=== PATIENT | female | born 1955 | race Caucasian/White ===

== ENCOUNTER 2021-12-22 14:58 | Emergency (ER) | payer MEDICARE, OTHER, SELFPAY ==
[2021-12-22 15:06] VITALS: BP 165/102; PULSE 106; RESP 16; TEMP 36.7; O2SAT 98
--- NOTE | 2021-12-22 15:12 | ED.FEVER ---
HPI - Fever General Chief Complaint: Fever Stated Complaint: has fever; needs covid test and urine culture Time Seen by Provider: 12/22/21 15:28 Mode of arrival: ambulatory Limitations: no limitations History of Present Illness HPI Narrative: 66-year-old female presents with concern for an elevated temperature reading today when she went to the unmanned equipment operator. Reports that he took a tympanic temperature and told her she had a fever of 101.7. Reports she went home and took 1 Tylenol. She presented here approximately 1 hour after her elevated temperature reading at the unmanned equipment operator. She denies any symptoms. Denies fever, body aches, chills, sweats, cough, runny nose, nasal congestion. Denies abdominal pain, nausea, vomiting, dysuria, hematuria, frequency, urgency, headache, general malaise MD elicited complaint: fever Related Data Home Medications Medication Instructions Recorded Confirmed albuterol sulfate INHALATION 12/22/21 alprazolam 12/22/21 lisinopril 12/22/21 paroxetine HCl mg PO 12/22/21 simvastatin mg 12/22/21 Allergies Allergy/AdvReac Type Severity Reaction Status Date / Time codeine AdvReac n/v Verified 08/05/12 11:53 Review of Systems Review of Systems: CONSTITUTIONAL: Denies malaise, chills, sweats, or fever. EYES: Denies visual changes, redness, or discharge. ENT: Denies rhinorrhea, congestion, sinus pain, otalgia or sore throat. CARDIOVASCULAR: Denies chest pain, palpitations, or edema. RESPIRATORY: Denies cough or dyspnea. GASTROINTESTINAL: Denies abdominal pain, nausea, vomiting, diarrhea, bloody, or mucous stools. GENITOURINARY: Denies dysuria or hematuria. SKIN: Denies rash or itching. MUSCULOSKELETAL: Denies back pain, joint pain, or myalgia. NEUROLOGIC: Denies numbness, weakness, or headache. PSYCHIATRIC: Denies anxiety or depression. All systems reviewed & are unremarkable except as noted in HPI and below PMFSH Comments At time of signature, agree with nursing past medical, surgical, social and family history. There is no relevant family history pertinent to the presenting complaint Exam Narrative: GENERAL: Well-appearing, well-nourished, and in no acute distress. HEAD: Normocephalic, atraumatic. EYES: PERRLA, sclera clear ENT: Nares clear, turbinates pink, no rhinorrhea or epistaxis. Mucous membranes moist. TM pearly garcia with sharp light reflex bilaterally; no tragal tenderness. Oropharynx without erythema or lesions. Tonsils not enlarged and without exudate. NECK: Supple. No lymphadenopathy. CHEST: No respiratory distress. Clear to auscultation. No bony deformities, no asymmetry. Speaks in full sentences. HEART: Regular rate and rhythm. No murmur heard. Normal peripheral pulses. EXTREMITIES: Grossly normal range of motion. No edema. Grossly normal strength and sensation. SKIN: Warm, dry, no visible rash. NEURO: Alert and oriented x3. PSYCH: Normal mood and affect Course Course Emergency Course: Patient is aware of diagnosis, understands and agrees to treatment plan. Anticipatory guidance given. Patient agrees to follow-up as directed and is aware of reasons to seek care at the emergency department. Portions of this record may have been created with voice recognition software Level of Care: Express Care Visit Vital Signs Vital signs: Reviewed. Patient has history of hypertension MDM - Fever MDM Narrative Medical decision making narrative: Exam findings and UA show no acute concerns or changes; patient is non-toxic appearing and is in no distress. Patient is appropriate for outpatient treatment and follow-up. Lab Data Attestation: I reviewed the patient's lab results. Critical Care Time Critical Care Time Critical Care Time: No Discharge Plan Discharge Clinical Impression: Physically well but worried Patient Disposition: Home, Self-Care Condition: Stable Additional Instructions: Your rapid COVID test is negative 1) Please follow-up with your primary care docto
== END 2021-12-22 15:56 | disposition home or self-care (01) ==
PROVIDERS: Emergency Provider Nurse Practitioner
DX: Z71.1 Person with feared health complaint in whom no diagnosis is made (principal); Z20.822 Contact with and (suspected) exposure to COVID-19
CPT/HCPCS: 81003; 87426; 99213; C9803; G0463

== ENCOUNTER 2022-06-03 17:10 | Emergency (ER) | payer MEDICARE, OTHER, SELFPAY ==
--- NOTE | ~2022-06-03 | XR_ITS ---
EXAMINATION: XR chest 2V DATE: 06/03/2022 17:43 INDICATION: Cough and chest pain TECHNIQUE: PA and lateral views of the chest are obtained. COMPARISON: 02/17/2012 FINDINGS: The lungs are free of acute opacities. No pleural effusion or pneumothorax. The cardiomedia stinal silhouette is normal. There is moderate thoracic spondylosis. There are changes of left should er arthroplasty. IMPRESSION: 1. No acute cardiopulmonary abnormality. Reviewed, dictated and finalized at location B.
[2022-06-03 17:16] VITALS: BP 173/85; PULSE 98; RESP 20; TEMP 36.6; O2SAT 100
--- NOTE | 2022-06-03 17:16 | ECG_ITS ---
Measurements Intervals [place] Rate: 96 P: [place]: 0 QRS: 53 QRSD: 96 T: 61 QT: 356 QTc: 451 Interpretive Statements SINUS RHYTHM ABNORMAL RHYTHM ECG NO PREVIOUS ECG AVAILABLE FOR COMPARISON Electronically Signed On 06-04-2022 13:52:37 CDT by Aaron Murillo M.D.
[2022-06-03 17:36] LABS: Basophils Percent Auto 0.4 % (0.2-1.2); Eosinophils Percent Auto 0.4 % (0-4.4); Hemoglobin 15.2 g/dL (12.0-15.0); Immature Granulocyte Absolute 0.03 K/mm3 (0.00-0.031); Immature Granulocyte Percent A 0.4 % (0-0.5); Lymphocytes Absolute Auto 1.88 K/mm3 (0.9-3.2); Lymphocytes Percent Auto 23.3 % (18.3-44.2); Mean Corpuscular HGB Conc 33.8 g/dl (32-36); Mean Corpuscular Hemoglobin 30.5 pg (26-34); Mean Corpuscular Volume 90.2 fl (80-100); Mean Platelet Volume 8.7 fl (7.4-10.4); Monocytes Absolute Auto 0.6 K/mm3 (0.1-0.6); Monocytes Percent Auto 7.5 % (2.6-8.5); Neutrophils Absolute Auto 5.5 K/mm3 (1.3-6.7); Platelet Count Result 305 k/mm3 (150-375); Red Blood Count 4.99 M/mm3 (4.2-5.4); Red Cell Distribution Width 14.1 % (11.5-14.5); White Blood Count 8.1 K/mm3 (4.5-10.0)
[2022-06-03 17:46] LABS: Alanine Aminotransferase 30 U/L (6-35); Albumin Level 4.9 g/dL (3.5-5.1); Alkaline Phosphatase 113 U/L (38-126); Anion Gap 11 mmol/L (8-16); Aspartate Amino Transferase 31 U/L (14-36); Bilirubin,Total 0.5 mg/dL (0.2-1.3); Blood Urea Nitrogen 13 mg/dL (7-17); Calcium 9.5 mg/dL (8.4-10.2); Carbon Dioxide 23 mmol/L (22-30); Chloride 98 mmol/L (98-107); Estimated Glomerular Filt Rate > 60; Glucose 110 mg/dL (65-110); Lipase 116 U/L (23-300); Potassium 3.9 mmol/L (3.4-5.0); Sodium 132 mmol/L (137-145)
[2022-06-03 17:49] LABS: INR 1.4; Prothrombin Time 16.6 Seconds (11.1-14.7)
[2022-06-03 17:50] LABS: Partial Thromboplastin Time 31.5 SECONDS (22.3-36.8)
[2022-06-03 17:58] LABS: Troponin I < 0.012 ng/mL (0.000-0.034)
[2022-06-03 18:52] LABS: Influenza A QL RT-PCR Negative (Negative); Influenza B QL RT-PCR Negative (Negative); SARS-CoV-2 RNA PCR Negative
[2022-06-03] MEDS: IPRATROPIUM BR 0.02% INH SOLN 0.5 MG/2.5 ML VIAL INHALATION (19:21)
[2022-06-03] MEDS: ALBUTEROL SULFATE NEB 2.5 MG/3 ML INH 5 MG INHALATION (19:21)
[2022-06-03 19:25] VITALS: PULSE 87; RESP 17
[2022-06-03 19:42] VITALS: PULSE 91; RESP 22
--- NOTE | 2022-06-03 20:21 | ED.GENADULT ---
HPI - General Adult General Chief complaint: Chest Pain Stated complaint: headache, sore throat Time Seen by Provider: 06/03/22 17:47 History of Present Illness HPI narrative: Patient is a 66-year-old female who presents ER with cold symptoms. She has been having fevers and chills her last couple days. She has body aches. She has some congestion with sore throat. No known sick contacts. She is vaccinated against flu and COVID. No alleviating factors. Associated with aching headache. No change in vision or hearing. No focal weakness. Related Data Home Medications Medication Instructions Recorded Confirmed albuterol sulfate 90 mcg/actuation inhalation 12/22/21 aerosol inhaler alprazolam 1 mg tablet 12/22/21 lisinopril 10 mg tablet 12/22/21 paroxetine HCl 40 mg tablet mg PO 12/22/21 simvastatin 40 mg tablet mg 12/22/21 Allergies Allergy/AdvReac Type Severity Reaction Status Date / Time codeine AdvReac n/v Verified 06/03/22 18:07 Review of Systems Review of Systems: All systems reviewed & are unremarkable except as noted in HPI and below Constitutional: Constitutional: Reports chills and Reports fever(s) ENT: Reports nasal congestion and Reports sore throat Cardiovascular: Cardiovascular: Denies chest pain, Denies rapid heart rate and Denies radiating jaw, neck or arm pain Respiratory: Respiratory: Reports cough, Reports dyspnea and Denies wheezing Gastrointestinal: Gastrointestinal: Denies abdominal pain, Denies nausea and Denies vomiting Neurologic: Denies syncope, Reports headache(s), Denies focal weakness and Denies numbness Exam Narrative: GENERAL: Well-appearing, well-nourished, and in no acute distress. HEAD: Normocephalic, atraumatic. EYES: PERRL and EOMI. ENT: Mucous membranes moist. CHEST: Scattered faint wheezing on expiration. No respiratory distress. HEART: Regular rate and rhythm. Normal peripheral pulses. ABDOMEN: Soft, nontender, nondistended. EXTREMITIES: Normal range of motion. No edema. SKIN: Warm, dry, no rash. NEURO: Alert and oriented x3. PSYCH: Normal mood and affect. Course Course Emergency Course: Patient resting comfortably. Informed her of results. Wheezing gone after nebulizer treatment. Patient has albuterol at home. Discharge. Vital Signs Vital signs: Vital Signs Temperature 97.8 F 06/03/22 17:16 Pulse Rate 98 06/03/22 17:16 Respiratory Rate 20 06/03/22 17:16 Blood Pressure 173/85 H 06/03/22 17:16 Pulse Oximetry 100 06/03/22 17:16 Oxygen Delivery Room Air 06/03/22 17:16 Temperature 97.8 F 06/03/22 17:16 Pulse Rate 91 06/03/22 19:42 Respiratory Rate 22 H 06/03/22 19:42 Blood Pressure 173/85 H 06/03/22 17:16 Pulse Oximetry 100 06/03/22 17:16 Oxygen Delivery Room Air 06/03/22 17:16 Medical Decision Making Vital Signs Vital Signs: Vital Signs Temperature 97.8 F 06/03/22 17:16 Pulse Rate 98 06/03/22 17:16 Respiratory Rate 20 06/03/22 17:16 Blood Pressure 173/85 H 06/03/22 17:16 Pulse Oximetry 100 06/03/22 17:16 Oxygen Delivery Room Air 06/03/22 17:16 Temperature 97.8 F 06/03/22 17:16 Pulse Rate 91 06/03/22 19:42 Respiratory Rate 22 H 06/03/22 19:42 Blood Pressure 173/85 H 06/03/22 17:16 Pulse Oximetry 100 06/03/22 17:16 Oxygen Delivery Room Air 06/03/22 17:16 Lab Data Result diagrams: 06/03/22 17:26 06/03/22 17:26 Labs: Lab Results 06/03/22 06/03/22 06/03/22 Range/Units 17:26 17:26 17:26 WBC 8.1 (4.5-10.0) K/mm3 RBC 4.99 (4.2-5.4) M/mm3 Hgb 15.2 H (12.0-15.0) g/dL Hct 45.0 (37.0-47.0) % MCV 90.2 (80-100) fl MCH 30.5 (26-34) pg MCHC 33.8 (32-36) g/dl RDW 14.1 (11.5-14.5) % Plt Count 305 (150-375) k/mm3 MPV 8.7 (7.4-10.4) fl Immature Gran % (Auto) 0.4 (0-0.5) % Neut % (Auto) 68.0 (45.5-73.1) % Lymph % (Auto) 23.3 (18.3-44.2) % [place] % (Auto) 7.5 (
== END 2022-06-03 20:56 | disposition home or self-care (01) ==
PROVIDERS: Emergency Medicine; Emergency Provider Emergency Medicine
DX: B34.9 Viral infection, unspecified (principal); Z20.822 Contact with and (suspected) exposure to COVID-19; R94.31 Abnormal electrocardiogram [ECG] [EKG]
CPT/HCPCS: 36415; 71046; 80053; 83690; 84484; 85025; 85610; 85730; 87502; 93005; 94640; 99284; C9803; U0003; U0005

== ENCOUNTER 2023-09-29 11:10 | Emergency (ER) | payer MEDICARE, SELFPAY ==
--- NOTE | 2023-09-29 11:19 | ED.GENADULT ---
HPI - General Adult General Chief complaint: Upper Respiratory Infection Stated complaint: SINUS CONGESTION/HEADACHE/COUGH Source: patient, RN notes reviewed and old records reviewed Mode of arrival: ambulatory Limitations: no limitations History of Present Illness HPI narrative: 68-year-old female presents to [facility] with complaints of cough, congestion, sinus pressure that started Tuesday. Patient taking [id number] medications relief. Patient states to called her PCP yesterday who told her to take Tylenol and get bed rest. Patient states called PCP office again today who told her to have a 4 panel test . Patient unsure what testing is. Patient also states PCP recommended COVID strep test Related Data Home Medications Medication Instructions Recorded Confirmed albuterol sulfate 90 mcg/actuation 2 puff inhalation Q4H PRN 12/22/21 09/29/23 aerosol inhaler Shortness Of Breath alprazolam 1 mg tablet 1 mg PO TID 12/22/21 09/29/23 lisinopril 10 mg tablet 10 mg PO DAILY 12/22/21 09/29/23 paroxetine HCl 40 mg tablet 40 mg PO DAILY 12/22/21 09/29/23 simvastatin 40 mg tablet 40 mg PO DAILY 12/22/21 09/29/23 Allergies Allergy/AdvReac Type Severity Reaction Status Date / Time codeine AdvReac n/v Verified 09/29/23 11:17 Review of Systems Constitutional: Constitutional: Reports no additional constitutional complaints, Denies body ache(s), Denies chills, Denies fatigue, Denies fever(s) and Denies headache(s) Eyes: Eyes: Reports no additional eye complaints and Denies blurry vision ENT: Reports system reviewed and no additional complaints, except as documented, Denies vertigo, Denies dizziness, Denies ear discharge, Denies otalgia, Denies facial pain, Denies headache(s), Reports nasal congestion, Denies nasal discharge, Reports sinus pain, Denies sinus pressure and Denies sore throat Cardiovascular: Cardiovascular: Reports no additional cardiovascular complaints, Denies chest pain, Denies chest pain at rest, Denies rapid heart rate and Denies dyspnea Respiratory: Respiratory: Reports no additional respiratory complaints, Denies chest congestion, Reports cough, Denies pain on inspiration, Denies pain with cough and Denies dyspnea Gastrointestinal: Gastrointestinal: Denies abdominal pain, Denies diarrhea, Denies nausea and Denies vomiting Integumentary/Breasts: Skin/Breast: Denies rash Neurologic: Reports system reviewed and no additional complaints, except as documented, Denies vertigo, Denies dizziness and Denies headache(s) Endocrine: Endocrine: Denies fatigue PMFSH Comments At the time of my signature, I reviewed and agree with the nursing past medical, surgical, social, and family history. There is no relevant family history pertinent to the patient complaint. Exam Const: General: healthy appearing, no acute distress and well nourished Nutritional Appearance: well nourished Orientation/consciousness: patient oriented x3 and Other orientation findings (anxious) Limitations: behavioral limitations HENMT: Head: normal to inspection and normocephalic Face/Nose/Sinus: normal facial exam Eyes: General: appearance normal, both eyes and all related structures Sclera: sclerae normal Resp: Effort & Inspection: normal respiratory effort and Actively coughing Skin: General skin exam: normal color Neuro: General: patient oriented x3 Gait exam (Neuro): Normal gait present Psych: Speech and movement: Normal speech and movement present Affect: Anxious affect present and Irritable affect present Attitude: Refuses to answer (attititude/behavior) Insight: Poor insight present (Psych) Judgement: Poor judgement present (Psych) Course Course Emergency Course: Patient is aware of diagnosis, understands and agrees to treatment plan.? Anticipatory guidance given.? Patient agrees to follow-up as directed and is aware of reasons to seek care at the emergency department. Some parts of this dictation were generated by vo
[2023-09-29 11:23] VITALS: BP 113/81; PULSE 115; RESP 16; TEMP 36.4; O2SAT 99
== END 2023-09-29 11:34 | disposition left against medical advice (07) ==
PROVIDERS: Emergency Provider Registered Nurse
DX: U07.1 COVID-19 (principal)
CPT/HCPCS: 87081; 87426; 87804; 87880; 99213; G0463

== ENCOUNTER 2024-08-06 11:30 | Emergency (ER) | payer MEDICARE, SELFPAY ==
--- NOTE | ~2024-08-06 | XR_ITS ---
XR hand LT min 3V Ordering provider: Vasquez Leggett MD History: . laceration, LEFT HAND PALM SIDE . Comparison: August 04, 2012 FINDINGS: BONES: Amputation seen in the middle and distal phalanges of the second finger. No acute fracture or dislocation. JOINT SPACES: Narrowing of the proximal and distal interphalangeal joints. Osteoarthritic changes of the first carpometacarpal joint. SOFT TISSUES: Unremarkable. IMPRESSION: No acute osseous abnormality left hand. 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 Reviewed, dictated and finalized at location A. INE ATTENDANT
[2024-08-06 11:36] VITALS: BP 191/108; PULSE 104; RESP 18; TEMP 36.4; O2SAT 97
[2024-08-06 12:01] VITALS: BP 176/86; O2SAT 97
--- NOTE | 2024-08-06 12:45 | ED_ITS ---
HPI - Wound/Laceration General Chief Complaint: Wound/Laceration Stated Complaint: hand lac Time Seen by Provider: 08/06/24 12:04 History of Present Illness HPI narrative: 69-year-old female presenting with a laceration. Patient was using a long kitchen knife when she accidentally stabbed her left hand. States that it went all the way through. Complains of a lot of pain and random paresthesias in the hand. Unsure of last tetanus shot. Related Data Home Medications ?Medication ?Instructions ?Recorded ?Confirmed ?Last Taken ?Type albuterol sulfate 90 mcg/actuation 2 puff inhalation Q4H PRN 12/22/21 09/29/23 U nknown History aerosol inhaler Shortness Of Breath alprazolam 1 mg tablet 1 mg PO TID 12/22/21 09/29/23 Unknown History lisinopril 10 mg tablet 10 mg PO DAILY 12/22/21 09/29/23 Unknown History paroxetine HCl 40 mg tablet 40 mg PO DAILY 12/22/21 09/29/23 Unknown History simvastatin 40 mg tablet 40 mg PO DAILY 12/22/21 09/29/23 Unknown History Allergies Allergy/AdvReac Type Severity Reaction Status Date / Time codeine AdvReac n/v Verified 09/29/23 11:17 Review of Systems Review of Systems: All systems reviewed & are unremarkable except as noted in HPI and below Exam Narrative: GENERAL: Tearful secondary to the situation and pain HEAD: Normocephalic, atraumatic. EYES: PERRLA and EOMI. ENT: Mucous membranes moist. NECK: Supple. CHEST: No respiratory distress. HEART: Regular rate and rhythm EXTREMITIES: 1.5 cm laceration palmar aspect of the left hand,0.5 cm laceration dorsal aspect is the exit wound; brisk cap refill in all fingers, ROM intact, no sensory deficits SKIN: Warm, dry, no rash. NEURO: No focal deficits. Alert and oriented x3. PSYCH: Normal mood and affect. Course Vital Signs Vital signs: Vital Signs Temperature 97.6 F 08/06/24 11:36 Pulse Rate 104 H 08/06/24 11:36 Respiratory Rate 18 08/06/24 11:36 Blood Pressure 191/108 H 08/06/24 11:36 Pulse Oximetry 97 08/06/24 11:36 Oxygen Delivery Room Air 08/06/24 11:36 Temperature 97.6 F 08/06/24 11:36 Pulse Rate 82 08/06/24 15:03 Respiratory Rate 18 08/06/24 15:03 Blood Pressure 198/101 H 08/06/24 15:03 Pulse Oximetry 95 08/06/24 15:03 Oxygen Delivery Room Air 08/06/24 11:36 Procedures Laceration Laceration 1: Date: 08/06/24 Time: 14:34 Site: hand Side (If applicable): left Size (cm): 1.5 Description: linear Depth: simple, single layer Local Anesthetic: lidocaine 1% Pre-repair: irrigated and irrigated extensively ====== Skin Level ====== Skin layer closed with: nylon Size (cm): 3-0 Number of sutures: 2 Technique: simple, interrupted ====== Subcutaneous Layer ====== ====== Muscle Layer ====== ====== Tendon Layer ====== MDM - Wound/Laceration MDM Narrative Medical decision making narrative: 69-year-old female presenting with a laceration to her left hand. Exam remarkable for the above. X-ray obtained shows no retained foreign body or osseous involvement. The palmar laceration was loosely repaired with sutures. please see procedure note below for further detail. Tolerated without complication. Will cover prophylactically with Keflex and recommend close follow-up with Hand surgery and PCP. Discussed appropriate supportive care and return precautions. Patient is agreeable this plan. Discharged in stable condition. Differential Diagnosis Differential diagnosis: Likely laceration, abrasion and avulsion of skin Medical Records Attestation: I reviewed the patient's medical records. Imaging Data Radiologist's impression: ITS Impressions Hand X-Ray 08/06/24 12:11 IMPRESSION: No acute osseous abnormality left hand. 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 Critical Care Time Critical Care Time Critical Care Time: No Discharge Plan Discharge Clinical Impression: Laceration of hand, left Patient Disposition: Home, Self-Care Condition: Stable Instructions: Antibiotic Form, Laceration (ED) Additional Instructions: We have placed 2 stitches in your left hand - please keep this hand clean and dry for the next 24 hours. After 24 hours, you may wash it normally. Do not scrub, you may just let soapy warm water wash over it. Please complete the antibiotics as prescribed. Please use ibuprofen or naproxen for pain control and you may use the prescribe narcotics for severe breakthrough pain. Please follow-up closely with Hand surgery at the number below. If your symptoms worsen or other concerning symptoms arise, please return to the ER. Patient Language: [place] Prescriptions: New cephalexin 500 mg capsule 500 mg PO Q6H 7 Days Qty: 28 0RF hydrocodone-acetaminophen 5-325 mg tablet 1 tablet PO Q6H PRN (Reason: pain) Qty: 10 0RF No Action alprazolam 1 mg tablet 1 mg PO TID simvastatin 40 mg tablet 40 mg PO DAILY lisinopril 10 mg tablet 10 mg PO DAILY albuterol sulfate 90 mcg/actuation HFA aerosol inhaler 2 puff INHALATION Q4H PRN (Reason: Shortness Of Breath) paroxetine HCl 40 mg tablet 40 mg PO DAILY Follow-up/Referrals: Ricardo Johnson MD [Physician] -
[2024-08-06 12:46] VITALS: BP 185/115; O2SAT 98
[2024-08-06] MEDS: oxyCODONE/ACETAMINOPHEN (*CRX) 5-325 MG TABLET 1 TABLET PO (12:53)
[2024-08-06] MEDS: TETANUS,DIPHTHERIA,AC PERTUSSIS ADULT (0.5 ML) BOOSTRIX IM (12:55)
--- NOTE | 2024-08-06 14:09 | PC.NURSE ---
Dr Dodd aware that patient still c/o pain 04/24--no new orders received
[2024-08-06] MEDS: KETOROLAC 30 MG/ML VIAL (*BKC) IM (14:37)
[2024-08-06] MEDS: CEPHALEXIN 500 MG CAPSULE PO (14:56)
[2024-08-06 15:03] VITALS: BP 198/101; PULSE 82; RESP 18; O2SAT 95
== END 2024-08-06 15:14 | disposition home or self-care (01) ==
PROVIDERS: Emergency Provider Emergency Medicine
DX: S61.412A Laceration without foreign body of left hand, initial encounter (principal); W26.0XXA Contact with knife, initial encounter; Z23 Encounter for immunization
CPT/HCPCS: 12001; 73130; 90471; 90715; 96372; 99283; A9270; J1885